=== PATIENT | male | born 1980 | race African-American/Black ===

== ENCOUNTER 2017-02-07 18:20 | Inpatient (IN) | payer MEDICAID ==
[~2017-02-07] VITALS: Ht 182.9 cm; Wt 93.0 kg
[~2017-02-07 18:20] MED LIST: ATOR10TA69 PO; HYDR25TA PO; LABE300T PO; LISI-604 PO
[2017-02-07] MEDS ORDERED: MORPHINE SULFATE 4 MG/ML CPJ (NOT FOR IM USE) IV STA (20:20)
[2017-02-07] MEDS ORDERED: ONDANSETRON HCL 4MG/2ML VIAL IV STA (20:20)
[2017-02-07] MEDS ORDERED: ASPIRIN 81MG TABLET PO ONE (20:30)
[2017-02-07 20:55] LABS: BASOPHILS % 1.3 % (0.0-2.0); EOSINOPHILS % 3.3 % (0.0-5.0); HEMATOCRIT. 47.7 % (42.0-52.0); HEMOGLOBIN. 16.3 g/dL (14.0-18.0); MEAN CORPUSCULAR HEMOGLOBIN 27.3 pg (28.0-32.0); MEAN CORPUSCULAR VOLUME 80.2 fL (80.0-94.0); MEAN PLATELET VOLUME 8.6 fl (7.4-10.4); MONOCYTES % 7.4 % (2.0-8.0); PLATELET 395 x1000/uL (130-400); RED BLOOD CELL COUNT 5.95 mill/uL (4.7-6.1)
[2017-02-07 20:57] LABS: PROTHROMBIN TIME 10.4 sec (9.4-11.6)
[2017-02-07 21:05] LABS: CARBON DIOXIDE 27 mEq/L (21-32); CHLORIDE 97 mEq/L (98-107)
[2017-02-07 21:09] LABS: TROPONIN I < 0.02 ng/mL (0.00-0.04)
[2017-02-07] MEDS ORDERED: HYDROCODONE/ACETAMINOPHEN 5/325MG TABLET PO PRN (21:30)
[2017-02-07] MEDS ORDERED: ACETAMINOPHEN 325MG TABLET PO PRN (21:30)
[2017-02-07] MEDS ORDERED: IPRATROPIUM/ALBUTEROL 0.5-3(2.5)MG/3ML NEB INH PRN (21:30)
[2017-02-07] MEDS ORDERED: DOCUSATE SODIUM 100MG CAPSULE PO PRN (21:30)
[2017-02-07] MEDS ORDERED: MAGNESIUM/ALUMINUM HYDROXIDE/SIMETHICONE 30ML UDC PO PRN (21:30)
[2017-02-07 22:53] LABS: CHLORIDE 98 mEq/L (98-107)
[2017-02-07 23:05] LABS: CARBON DIOXIDE 29 mEq/L (21-32); CREATINE KINASE 459 IU/L (39-308); CREATINE KINASE MB FRACTION 2.2 ng/mL (0.5-3.6)
[2017-02-08] VITALS (8 sets, daily range): BP systolic 122–157; BP diastolic 72–110
[2017-02-08] MEDS ORDERED: ATOR-2 PO (00:22)
[2017-02-08] MEDS ORDERED: MEDICATION NOT ON FORMULARY EA (Atorvastatin Calcium 1 TAB) PO SCH (00:30)
[2017-02-08] MEDS: CLONIDINE 0.1MG TABLET PO PRN (00:39)
[2017-02-08] MEDS: ENOXAPARIN 40MG/0.4ML SYR SUBCUT SCH ×2 (00:39→23:42)
[2017-02-08] MEDS ORDERED: VERAPAMIL PO (00:48)
[2017-02-08] MEDS: ATORVASTATIN CALCIUM 40MG TABLET PO SCH ×2 (01:17→21:49)
[2017-02-08] MEDS: ASPIRIN 81MG EC TABLET PO SCH (08:33)
[2017-02-08] MEDS: HYDROCHLOROTHIAZIDE 25MG TABLET PO SCH (08:33)
[2017-02-08] MEDS: VERAPAMIL HCL 120MG TABLET PO SCH (08:33)
[2017-02-08] MEDS ORDERED: VERAPAMIL PO SCH (09:00)
[2017-02-08 09:04] LABS: CREATINE KINASE MB FRACTION 1.8 ng/mL (0.5-3.6)
[2017-02-08] MEDS: ONDANSETRON HCL 4MG/2ML VIAL IV PRN (18:07)
[2017-02-08] MEDS: MORPHINE SULFATE 2 MG/ML CPJ (NOT FOR IM USE) IV PRN (21:44)
[2017-02-09 02:03] LABS: *AMPHETAMINES SCREEN URINE NEGATIVE (NEGATIVE); *BARBITURATES SCREEN URINE NEGATIVE (NEGATIVE); *BENZODIAZEPINES SCREEN URINE NEGATIVE (NEGATIVE); *COCAINE SCREEN URINE NEGATIVE (NEGATIVE); CANNABINOID URINE SCREEN NEGATIVE (NEGATIVE); METHADONE URINE SCREEN NEGATIVE (NEGATIVE); OPIATES URINE SCREEN PRESUMTIVE POSITIVE (NEGATIVE); PHENCYCLIDINE URINE SCREEN NEGATIVE (NEGATIVE)
[2017-02-09 04:00] VITALS: BP 134/83
[2017-02-09 08:00] VITALS: BP 141/95
[2017-02-09] MEDS: VERAPAMIL HCL 120MG TABLET PO SCH (08:38)
[2017-02-09] MEDS: ASPIRIN 81MG EC TABLET PO SCH (08:39)
[2017-02-09] MEDS: HYDROCHLOROTHIAZIDE 25MG TABLET PO SCH (08:39)
[2017-02-09] MEDS: MORPHINE SULFATE 2 MG/ML CPJ (NOT FOR IM USE) IV PRN ×2 (08:40→15:30)
[2017-02-09] MEDS: ONDANSETRON HCL 4MG/2ML VIAL IV PRN (08:48)
[2017-02-09 11:40] LABS: CLARITY URINE CLEAR (CLEAR); COLOR URINE YELLOW (YELLOW); GLUCOSE URINE NEGATIVE (NEGATIVE); KETONES URINE NEGATIVE (NEGATIVE); LEUKOCYTE ESTERASE URINE NEGATIVE (NEGATIVE); NITRITE URINE NEGATIVE (NEGATIVE); OCCULT BLOOD URINE NEGATIVE (NEGATIVE); PH URINE 5.5 (4.5-8.0); PROTEIN URINE NEGATIVE (NEGATIVE); SPECIFIC GRAVITY URINE 1.008 (1.005-1.030); UROBILINOGEN URINE 0.2 E.U./dL (0.2-1.0)
[2017-02-09 12:00] VITALS: BP 136/83
[2017-02-09] MEDS: CLONIDINE 0.1MG TABLET PO PRN (15:38)
[2017-02-09 16:00] VITALS: BP 162/101
[2017-02-09 16:46] LABS: CARBON DIOXIDE 33 mEq/L (21-32); CHLORIDE 95 mEq/L (98-107)
[2017-02-09 17:02] VITALS: BP 157/102
[2017-02-09 17:15] VITALS: BP 157/102
[2017-02-09] MEDS ORDERED: NIFEDIPINE XL 60MG TAB PO SCH (21:00)
== END 2017-02-09 18:15 | disposition home or self-care (01) | DRG 470 ==
LOC: ER 18:20 → 8WST 21:20 → EDBEDREQ 21:24 → ENRESERV 22:22 → 8WST 02-08 00:39
PROVIDERS: ADMIT Internal Medicine; ATTEND Internal Medicine
DX: I12.9 Hypertensive chronic kidney disease with stage 1 through stage 4 chronic kidney disease, or unspecified chronic kidney disease (principal); M62.82 Rhabdomyolysis; N17.9 Acute kidney failure, unspecified; N18.3 Chronic kidney disease, stage 3 (moderate); E87.1 Hypo-osmolality and hyponatremia; M94.0 Chondrocostal junction syndrome [Tietze]; E78.00 Pure hypercholesterolemia, unspecified; E78.5 Hyperlipidemia, unspecified; J45.909 Unspecified asthma, uncomplicated; Z82.49 Family history of ischemic heart disease and other diseases of the circulatory system; I69.351 Hemiplegia and hemiparesis following cerebral infarction affecting right dominant side; Z79.899 Other long term (current) drug therapy
CPT/HCPCS: 36415; 71010; 76770; 80048; 80053; 80061; 80305; 81003; 82550; 82553; 83735; 83880; 84443; 84484; 85025; 85610; 93005; 93306; 93970; 96374; 96375; 99285; J1650; J2270; J2405; J7030